=== PATIENT | female | born 1995 | race Caucasian/White ===

== ENCOUNTER → 2024-12-26 09:34 | Outpatient (BNVA) | payer SELFPAY | PROVIDERS: PCP Internal Medicine; Visit Provider Internal Medicine | DX: Z13.6 Encounter for screening for cardiovascular disorders (principal) | CPT/HCPCS: 80061; 82947; 83036 ==

== ENCOUNTER 2025-05-10 08:24 | Outpatient (CLI) | payer MEDICAID, SELFPAY ==
--- NOTE | 2025-05-10 08:29 | XR_ITS ---
WS: [id number] Exam: XR lumbar spine 2-3V* [id number] Date/Time of Exam: 05/10/2025 8:44 AM Reason For Exam: S39.012A - Strain of muscle, fascia and tendon of lower b... Comparison 04/09/2014. No fracture or malalignment. Disc spaces are well-maintained. Posterior elements are intact. Partial sacralization of L5. IMPRESSION 1. 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 2. Partial sacralization of L5.
== END 2025-05-10 08:25 | disposition home or self-care (01) ==
LOC: RAD 08:27
PROVIDERS: PCP Clinical Nurse Specialist Adult Health; Visit Provider Clinical Nurse Specialist Adult Health
DX: S39.012A Strain of muscle, fascia and tendon of lower back, initial encounter (principal); M46.1 Sacroiliitis, not elsewhere classified; Q76.49 Other congenital malformations of spine, not associated with scoliosis; X58.XXXA Exposure to other specified factors, initial encounter
CPT/HCPCS: 72100